=== PATIENT | female | born 1995 | race Caucasian/White ===

== ENCOUNTER 2024-08-21 20:33 | Emergency (ER) | payer SELFPAY ==
[2024-08-21 21:00] LABS: APPEARANCE,URINE CLEAR; BILIRUBIN,URINE NEGATIVE (NEGATIVE); COLOR,URINE YELLOW; GLUCOSE,URINE NEGATIVE (NEGATIVE); KETONES,URINE NEGATIVE (NEGATIVE); LEUKOCYTE ESTERASE,URINE NEGATIVE (NEGATIVE); NITRITE,URINE NEGATIVE (NEGATIVE); OCCULT BLOOD,URINE TRACE-LYSED (NEGATIVE); PH,URINE 6.5 (5.0-8.0); PROTEIN,URINE NEGATIVE (NEGATIVE); UROBILINOGEN,URINE 0.2 EU/dL (<2.0)
[2024-08-21 21:08] LABS: BACTERIA,URINE NOT SEEN (NEGATIVE); EPITHELIAL CELLS,URINE NOT SEEN (NONE-FEW); RBC,URINE 0-1 (0-2/HPF); WBC,URINE NONE SEEN (0-5/HPF)
== END 2024-08-21 22:10 | disposition home or self-care (01) ==
LOC: MW.ED 20:33
DX: Z70.8 Other sex counseling (principal)
CPT/HCPCS: 81001; 81025; 99283